=== PATIENT | female | born 1990 | race African-American/Black ===

== ENCOUNTER 2017-08-19 19:40 | Emergency (ER) | payer OTHER ==
[~2017-08-19] VITALS: Ht 167.6 cm; Wt 120.2 kg
[~2017-08-19 19:40] MED LIST: BACTRIM DS TAB1 EACH PO; BUPROPION; FLEXERIL PO; HYDROCODON-ACE1 EAC7 PO; PENICILLIN VK500 M1 PO; PRENATAL COMPL1 EACH PO
[2017-08-19] MEDS ORDERED: LABETALOL HCL100 MG PO (20:15)
[2017-08-19 20:47] LABS: ABSOLUTE NEUTROPHILS 7.2 thou/uL (1.4-8.2); BASOPHILS 0.6 % (0.0-2.0); EOSINOPHILS 1.2 % (0.0-3.0); HEMATOCRIT 35.6 % (37.0-47.0); HEMOGLOBIN 12.7 gm/dL (12.0-15.0); LYMPHOCYTES 23.7 % (24.0-44.0); MCH 32.6 pg (26.0-34.0); MCHC 35.6 g/dL (28.0-37.0); MCV 91.4 fL (80.0-100.0); MONOCYTES 5.4 % (1.0-8.0); PLATELET COUNT 247 thou/uL (150-400); POLYS 69.1 % (36.0-66.0); RBC 3.89 mil/uL (4.20-5.00); WBC 10.4 thou/uL (4.0-11.0)
[2017-08-19 20:53] LABS: URINE BILIRUBIN NEGATIVE (Negative); URINE BLOOD NEGATIVE (Negative); URINE CLARITY CLEAR; URINE COLOR YELLOW; URINE GLUCOSE-RANDOM* NEGATIVE (Negative); URINE KETONES NEGATIVE (Negative); URINE LEUKOCYTES-REFLEX NEGATIVE (Negative); URINE NITRITE-REFLEX NEGATIVE (Negative); URINE PROTEIN (DIPSTICK) NEGATIVE (Negative); URINE SPECIFIC GRAVITY >= 1.030 (1.005-1.035); URINE UROBILINOGEN 0.2 E.U./dl (0.2-1.0)
[2017-08-19 20:55] LABS: CALCIUM 9.1 mg/dL (8.5-10.1); CREATININE 0.6 mg/dL (0.6-1.0); POTASSIUM 3.7 mmol/L (3.5-5.1)
[2017-08-19 21:02] LABS: ALBUMIN 3.2 g/dL (3.4-5.0); TOTAL BILIRUBIN 0.1 mg/dL (<0.1-1.0); TOTAL PROTEIN 6.5 g/dL (6.4-8.2)
== END 2017-08-19 22:07 | disposition home or self-care (01) ==
LOC: ER 19:40
PROVIDERS: Physician Assistant
DX: O26.892 Other specified pregnancy related conditions, second trimester (principal); R10.12 Left upper quadrant pain; Z3A.16 16 weeks gestation of pregnancy